=== PATIENT | female | born 1980 | race Caucasian/White ===

== ENCOUNTER 2017-09-27 13:58 | Emergency (ER) | payer SELFPAY ==
[~2017-09-27] VITALS: Ht 162.6 cm; Wt 120.5 kg
[2017-09-27] MEDS ORDERED: TESSALON PERLE100 MG PO (15:27)
[2017-09-27 15:43] VITALS: BP 92/72
== END 2017-09-27 15:50 | disposition home or self-care (01) ==
LOC: EME 13:58
DX: J06.9 Acute upper respiratory infection, unspecified (principal); J45.909 Unspecified asthma, uncomplicated
CPT/HCPCS: 87502; 87651 90; 99281; 99284

== ENCOUNTER 2017-10-01 00:34 | Emergency (ER) | payer SELFPAY ==
[~2017-10-01] VITALS: Ht 162.6 cm; Wt 119.6 kg
[~2017-10-01 00:34] MED LIST: TESSALON PERLE100 MG PO
[2017-10-01 00:52] LABS: HEMATOCRIT 39.4 % (36.0-46.0); HEMOGLOBIN 13.5 G/DL (11.9-15.5); MCH 32.9 PG (29.0-34.0); MCHC 34.3 G/DL (30.0-36.0); MCV 96.1 FL (83-99); RBC DIS.WIDTH-CV 12.4 % (11.8-14.6); RBC DIS.WIDTH-SD 43.3 % (39-53)
[2017-10-01 01:00] LABS: CHLORIDE 104 mEq/L (99-109); POTASSIUM 3.3 mEq/L (3.7-5.4); SODIUM 141 mEq/L (136-147)
[2017-10-01 01:02] LABS: GLUCOSE 120 mg/dL (70-99)
[2017-10-01 01:06] LABS: CREATININE 0.8 mg/dL (0.6-1.3); GFR ESTIMATE (CALCULATED) > 59 mL/min/
[2017-10-01 01:07] LABS: UREA NITROGEN (BUN) 8 mg/dL (9-23)
[2017-10-01 01:13] LABS: TROP-I INTERPRETATION NEGATIVE; TROPONIN-I < 0.01 ng/mL (0.0-0.30)
[2017-10-01 01:43] LABS: PLAT.SUFFICIENCY ADEQUATE; PLATELET COUNT 243 K/uL (156-360)
[2017-10-01] MEDS ORDERED: PREDNISONE20 MG PO (05:10)
[2017-10-01] MEDS ORDERED: ZITHROMAX250 MG PO (05:10)
[2017-10-01] MEDS ORDERED: PROVENTIL HFA6.7 GM IH (05:10)
[2017-10-01 06:40] VITALS: BP 108/84
== END 2017-10-01 06:43 | disposition home or self-care (01) ==
LOC: EME 00:34
DX: J20.9 Acute bronchitis, unspecified (principal); F17.200 Nicotine dependence, unspecified, uncomplicated; E28.2 Polycystic ovarian syndrome; J45.909 Unspecified asthma, uncomplicated; F41.9 Anxiety disorder, unspecified; Z98.51 Tubal ligation status; Z88.0 Allergy status to penicillin; Z88.5 Allergy status to narcotic agent
CPT/HCPCS: 71046; 80048; 84484; 85027; 93005; 94640; 94640 76; 99281; 99284; J7512